=== PATIENT | female | born 1955 | race African-American/Black ===

== ENCOUNTER → 2016-12-31 | Outpatient (CLI) | payer OTHER ==
[~2016-12-31] MED LIST: ANEXSIA 7.5/3251 TA1 PO; ASPIRIN EC81 M1 PO; ATORVASTATIN CA80 MG PO; CRESTOR10 MG PO; HYDROCHLOROTH12.5 M1 PO; LIPITOR40 MG PO; METOPROLOL SUCC25 MG PO; NEURONTIN600 MG PO
--- NOTE | ~2016-12-31 | MY11 ---
[facility] A Service of [facility] & [facility] RADIOLOGY TEXT RESULTS PATIENT: ERIC BEAL LOCATION: [facility] : 53 UNIT #: [id number] AGE: [address]: NGUYEN GOVEA APRN SEX: F ORDER DR: [id number] [address] [address] [id number] O MR#: [id number] Acc #: [id number] NAME: ERIC BEAL : 1955 SEX: F STUDY DATE/TIME: 12/31/2016 15:52 UNIT: [facility] ROOM: STUDY DESCRIPTION: MY Mammogram Screening Dig Alexis Attending Physician: Nguyen Govea Aprn Referring Physician: Nguyen Govea Aprn Ordering Physician: Nguyen Govea Aprn Primary Care Physician: Caroline Mirza M.D. MEDICAL IMAGING REPORT This report is preliminary unless electronic signature is present. EXAM Bilateral digital screening mammogram with CAD. COMPARISON August, June 11, 2013, November 10, 2010 and October 04, 2008. INDICATIONS Breast cancer screening. 61-year-old asymptomatic female. No personal or family history of breast cancer. FINDINGS There are scattered fibroglandular densities. There are no suspicious findings in the left breast. In the junction of the middle and posterior thirds of the superior right breast only seen on MLO view, there is an asymmetry measuring 8 mm x 7 mm which has enlarged from 2014 and appears new from 2013. This may be in the lateral right breast but is not well seen on CC projection. IMPRESSION 1. No mammographic evidence of malignancy in the left breast. 2. Right breast asymmetry possibly localizing to the lateral aspect of the right breast on CC view but only well seen on MLO projection. Further evaluation with spot compression MLO, spot compression CC and full field ML views is recommended, likely followed by right breast ultrasound. Patients over the age of 40 are entered into a reminder system with target due date for the next mammogram. A result letter will also be sent to the patient. BIRADS: 0 - Incomplete; need additional imaging evaluation and/or prior mammograms for comparison. STS. [facility] A Service of [facility] & [facility] RADIOLOGY TEXT RESULTS PATIENT: ERIC BEAL LOCATION: [facility] : 53 UNIT #: [id number] AGE: [address]: NGUYEN GOVEA APRN SEX: F ORDER DR: Dictated by... Romie Perez M.D. THIS IS AN ELECTRONICALLY VERIFIED REPORT Romie Perez M.D. at 01/06/2017 10:09 PM JORGE/kimmy TD: 01/03/2017 12:34 JOB #: [id number] MEDICAL IMAGING REPORT Page 1 of 1
--- NOTE | ~2016-12-31 | BD1 ---
[facility] A Service of [facility] & [facility] RADIOLOGY TEXT RESULTS PATIENT: ERIC BEAL LOCATION: [facility] : 53 UNIT #: [id number] AGE: [address]: NGUYEN GOVEA APRN SEX: F ORDER DR: [id number] [address] [address] [id number] O MR#: [id number] Acc #: [id number] NAME: ERIC BEAL : 1955 SEX: F STUDY DATE/TIME: 12/31/2016 15:19 UNIT: [facility] ROOM: STUDY DESCRIPTION: BD Dexa Bone Dens 1+ Site Attending Physician: Nguyen Govea Aprn Referring Physician: Nguyen Govea Aprn Ordering Physician: Nguyen Govea Aprn Primary Care Physician: Caroline Mirza M.D. MEDICAL IMAGING REPORT This report is preliminary unless electronic signature is present. EXAM DXA scan, 12/31/2016. HISTORY Status post menopause with no hormone replacement therapy. Osteopenia. Diabetes. Hypertension with blood pressure medication. FINDINGS Bone mineral density in the lumbar spine from L1 through L4 is 1.571 g/cm2 which is 3.3 standard deviations above the mean when compared to the young adult reference population which is within the range of normal. This is 3.6 standard deviations above the mean when compared to the age-matched population. Bone mineral density in the left femoral neck was 1.071 g/cm2 which is 0.2 standard deviations above the mean when compared to the young adult reference population which is within the range of normal. This is 0.4 standard deviations above the mean when compared to the age-matched population. Bone mineral density in the right femoral neck was 0.991 g/cm2 which is 0.3 standard deviations below the mean when compared to the young adult reference population which is within the range of normal. This is 0.1 standard deviations below the mean when compared to the age-matched population. IMPRESSION Bone mineral density in the lumbar spine and the hips bilaterally within the range of normal. Dictated by... Donnie Travis M.D. THIS IS AN ELECTRONICALLY VERIFIED REPORT Donnie Travis M.D. at 01/03/2017 2:10 PM [facility] A Service of [facility] RADIOLOGY TEXT RESULTS PATIENT: ERIC BEAL LOCATION: [facility] : 53 UNIT #: [id number] AGE: [address]: NGUYEN GOVEA APRN SEX: F ORDER DR: Zane TD: 12/31/2016 21:32 JOB #: [id number] MEDICAL IMAGING REPORT Page 1 of 1
== END | disposition home or self-care (01) ==
LOC: SMAM 12:45
DX: Z12.31 Encounter for screening mammogram for malignant neoplasm of breast (principal); M81.0 Age-related osteoporosis without current pathological fracture; N64.89 Other specified disorders of breast
CPT/HCPCS: 77080; G0202

== ENCOUNTER → 2017-01-13 | Outpatient (CLI) | payer OTHER ==
--- NOTE | ~2017-01-13 | MY25 ---
[facility] A Service of [facility] & [facility] RADIOLOGY TEXT RESULTS PATIENT: ERIC BEAL LOCATION: [facility] : 53 UNIT #: [id number] AGE: [address]: Adán Mirza MD SEX: F ORDER DR: [id number] [id number] [facility]. [place], [place] [address] [id number] O MR#: [id number] Acc #: [id number] NAME: ERIC BEAL : 1955 SEX: F STUDY DATE/TIME: 01/13/2017 10:32 UNIT: [facility] ROOM: STUDY DESCRIPTION: DARIA NIRAJ RICKS W/ CAD UNI RT Attending Physician: Adán Mirza M.D. Referring Physician: Caroline Mirza M.D. Ordering Physician: Adán Mirza M.D. Primary Care Physician: Nguyen Barahona Aprn MEDICAL IMAGING REPORT This report is preliminary unless electronic signature is present EXAM Additional views of the right breast and targeted right breast ultrasound 01/13/2017 INDICATION Asymmetry in the right breast on recent screening mammography. TECHNIQUE Compression CC, compression MLO and true lateral views of the right breast were obtained and reviewed with an FDA approved CAD device. Targeted ultrasound of the upper outer right breast also performed. COMPARISON Mammograms 12/31/2016. FINDINGS MAMMOGRAPHIC: The nodular asymmetry in the right breast persists on spot compression measuring about 7-8 mm. It is best seen on compression MLO and true lateral views but localizes laterally. Ultrasound was thereafter performed. ULTRASOUND: The patient was initially scanned independently by the technologist and then rescanned in my presence. There is a cyst in the 11 o'clock position right breast 7 cm from the nipple corresponding to the nodule mammographically. It measures 7 x 6 mm and has benign features. Additional tiny benign cyst 8 cm from nipple in the same clock position measures 4 x 5 mm. Ultrasound of the upper outer right breast is otherwise negative. Imaging findings are concordant with mammography. Return to an annual screening regimen is recommended absent new or worsening symptoms. Findings and recommendations were discussed with the patient. She voiced understanding and agreement. IMPRESSION STS. [facility] A Service of [facility] & [facility] RADIOLOGY TEXT RESULTS PATIENT: ERIC BEAL LOCATION: [facility] : 53 UNIT #: [id number] AGE: [address]: Adán Mirza MD SEX: F ORDER DR: The nodular asymmetry in the upper outer right breast on the patient's mammogram corresponds to a tiny benign cyst. Additional cyst in the right breast also noted with ultrasound only. These are benign findings and return to annual screening is recommended. See discussion above. Patients over the age of 40 are entered into a reminder system with target due date for the next mammogram. A result letter will also be sent to the patient. BIRADS: 2 Benign finding Dictated by... Luis Fernando Willson M.D. THIS IS AN ELECTRONICALLY VERIFIED REPORT Luis Fernando Willson M.D. at 01/13/2017 5:26 PM RICO/josué TD: 01/13/2017 12:05 JOB #: [id number] MEDICAL IMAGING REPORT Page 1 of 1 COPY
--- NOTE | ~2017-01-13 | US24 ---
[facility] A Service of [facility] & [facility] RADIOLOGY TEXT RESULTS PATIENT: ERIC BEAL LOCATION: [facility] : 53 UNIT #: [id number] AGE: [address]: Adán Mirza MD SEX: F ORDER DR: [id number] [facility] [address] [facility]. [place], [place] [address] [id number] O MR#: [id number] Acc #: [id number] NAME: ERIC BEAL : 1955 SEX: F STUDY DATE/TIME: 01/13/2017 10:41 UNIT: [facility] ROOM: STUDY DESCRIPTION: US Breast Unilateral Attending Physician: Adán Mirza M.D. Referring Physician: Caroline Mirza M.D. Ordering Physician: Adán Mirza M.D. Primary Care Physician: Nguyen Barahona Aprn MEDICAL IMAGING REPORT This report is preliminary unless electronic signature is present EXAM Ultrasound of the upper outer right breast 01/13/2017 FINDINGS Please see Diagnostic mammogram 01/13/2017 for results. BIRADS: 2 Benign finding Dictated by... Luis Fernando Willson M.D. THIS IS AN ELECTRONICALLY VERIFIED REPORT Luis Fernando Willson M.D. at 01/13/2017 5:23 PM RICO/josué TD: 01/13/2017 12:25 JOB #: [id number] MEDICAL IMAGING REPORT Page 1 of 1 COPY
== END | disposition home or self-care (01) ==
LOC: CMAM 10:00
DX: N64.89 Other specified disorders of breast (principal); N63 Unspecified lump in breast; N60.01 Solitary cyst of right breast
CPT/HCPCS: 76641; G0206